=== PATIENT | female | born 1980 | race Caucasian/White ===

== ENCOUNTER 2019-11-06 13:48 | Emergency (ER) | payer BC, SELFPAY ==
[2019-11-06 14:00] VITALS: BP 112/62; PULSE 82; RESP 18; TEMP 37.2; O2SAT 100
--- NOTE | 2019-11-06 14:31 | ED.GENADULT ---
HPI - General Adult General Chief complaint: Upper Respiratory Infection Stated complaint: Cough,Sneezing Time Seen by Provider: 11/06/19 14:31 Source: patient and RN notes reviewed Mode of arrival: ambulatory Limitations: no limitations History of Present Illness HPI narrative: 39-year-old female presents with complaints of upper respiratory infection symptoms, sore throat, chills, body aches, and cough for 1 day. NyQuil and Benadryl with little relief. Dry cough with intermittent productive cough (clear phlegm). Chest congestion. Rhinorrhea and nasal congestion. Exacerbating factors smoke exposure. No high fevers. No nausea, vomiting, and abdominal pain. Denies chest pain, dyspnea, coughing up blood, difficulty swallowing, jaw pain, dental pain, facial pain, foreign body sensation, and rash. Jenni denies being , LMP 1 month ago and has IUD in place. Remains active. Some parts of this dictation were generated by voice recognition software and may contain typographical and/or grammatical inaccuracies. Related Data Home Medications Medication Instructions Recorded Confirmed levonorgestrel [Mirena] 1 device INTRAUTERINE ONCE 09/10/19 11/06/19 sertraline [Zoloft] 50 mg DAILY 11/06/19 11/06/19 Allergies Allergy/AdvReac Type Severity Reaction Status Date / Time IVORY SOAP Allergy Mild Unknown Uncoded 11/06/19 13:57 Review of Systems Review of Systems: Narrative: CONSTITUTIONAL: Complains of chills. Denies fever, sweats. EYES: Denies visual changes, redness, discharge. ENT: Complains of rhinorrhea, congestion, sore throat. Denies otalgia. CARDIOVASCULAR: Denies chest pain, palpitations, edema. RESPIRATORY: Denies dyspnea, wheezing. Complains of dry cough, intermittent productive cough. GASTROINTESTINAL: Denies abdominal pain, nausea, vomiting, diarrhea. GENITOURINARY: Denies dysuria, hematuria, abnormal discharge. SKIN: Denies rash or itching. MUSCULOSKELETAL: Denies acute back pain, joint pain. Complains of myalgia. NEUROLOGIC: Denies numbness or focal weakness. PSYCHIATRIC: Denies anxiety or depression. Complains of intermittent BAUER. All systems reviewed & are unremarkable except as noted in HPI and below. [facility] Past Medical History Medical History Anxiety Bronchitis Depression Surgical History Surgical History H/O breast surgery Benign lesion removed from left breast Family History Family History (Updated 11/06/19 @ 15:09 by FAUSTINO Henry) Grandparent Hypertension Diabetes mellitus Social History Social History (Updated 11/06/19 @ 15:07 by FAUSTINO Henry) Smoking packs per day: 1 Smoking cigarettes per day: 20.0 Years smoked: 18 Smoking pack-years: 18.00 Smoking status: Current every day smoker Second hand tobacco smoke exposure: No Alcohol intake: never Substance use: current Substance use type: marijuana Living arrangements: with family Occupation/Education: occupation Gender identity (if verbalized by the patient): Female Comments At time of signature, agree with nurse past medical, surgical, social, and family history. There is no relevant family history pertinent to the presenting complaint. Exam Narrative: Exam Narrative: GENERAL: This is a well-nourished, well-developed patient, in no apparent distress. Speaks in full sentences and ambulates with steady gait without dyspnea. HEAD: normocephalic, atraumatic. EYES: PERRL. Sclera clear/white. Vision is grossly intact. EARS: External ears normal, auditory canals clear and without drainage, TMs normal without perforation. Hearing grossly intact. NOSE: External nose normal with no obvious nasal discharge, nares with mild redness and enlarged turbinates, clear rhinorrhea. THROAT: Mucous membranes moist, posterior pharynx with PND, mild erythema, no exudate, and normal ton
== END 2019-11-06 14:44 | disposition home or self-care (01) ==
PROVIDERS: Emergency Provider Nurse Practitioner Family
DX: J06.9 Acute upper respiratory infection, unspecified (principal); F17.210 Nicotine dependence, cigarettes, uncomplicated
CPT/HCPCS: 87804; 99213; G0463

== ENCOUNTER 2021-09-06 10:57 | Outpatient (CLI) | payer BC, SELFPAY ==
[2021-09-06 11:44] LABS: Influenza Control Positive
== END 2021-09-06 10:58 | disposition home or self-care (01) ==
LOC: ANHLAB 11:00
PROVIDERS: PCP Nurse Practitioner Family; Visit Provider Nurse Practitioner Family
DX: B34.9 Viral infection, unspecified (principal)
CPT/HCPCS: 87081; 87804; 87880

== ENCOUNTER 2021-10-10 11:06 | Emergency (ER) | payer BC, SELFPAY ==
--- NOTE | ~2021-10-10 | XR_ITS ---
EXAMINATION: XR foot LT min 3V EXAM DATE: 10/10/2021 11:29 INDICATION: left lateral foot pain s/p fall today TECHNIQUE: Left foot dorsoplantar, lateral and oblique projections obtained and reviewed. There is n o prior study for comparison. FINDINGS: Left metatarsal bones unremarkable. There are no acute fractures or dislocations identifi ed. There is no subcutaneous gas. The soft tissue is unremarkable. There are no radiopaque foreig n bodies. IMPRESSION: No acute osseous findings. Reviewed, dictated and finalized at location B. ITY TELLER IMPRESSION: No acute osseous findings.
[2021-10-10 11:18] VITALS: BP 102/64; PULSE 105; RESP 16; TEMP 36.9; O2SAT 99
--- NOTE | 2021-10-10 11:35 | ED.LOWEXIN ---
HPI - Extremity Injury (Lower) General Chief Complaint: Extremity Injury, Lower Stated Complaint: left ankle pain Time Seen by Provider: 10/10/21 11:45 Source: patient Mode of arrival: ambulatory Limitations: no limitations History of Present Illness HPI Narrative: 41-year-old female presented for complaint of left foot pain after injury today. She states she slipped on a glass and inverted the left foot. Endorses bruising and swelling to lateral aspect. Endorses pain at onset and worse with ambulation. She denies numbness, tingling, or weakness. Has not taken anything for pain. She is currently using a walker. Related Data Home Medications Medication Instructions Recorded Confirmed levonorgestrel [Mirena] 1 device INTRAUTERINE ONCE 09/10/19 10/10/21 sertraline [Zoloft] 100 mg DAILY 11/06/19 10/10/21 Allergies Allergy/AdvReac Type Severity Reaction Status Date / Time IVORY SOAP Allergy Mild Unknown Uncoded 10/10/21 11:13 Review of Systems Review of Systems: CONSTITUTIONAL: Denies body aches, fever, chills EYES: Denies visual changes ENT: Denies rhinorrhea, congestion CARDIOVASCULAR: Denies chest pain, palpitations, or edema. RESPIRATORY: Denies cough or dyspnea. GASTROINTESTINAL: Denies abdominal pain, nausea, vomiting, or diarrhea. SKIN: Denies rash, itching, or wounds. MUSCULOSKELETAL: endorses left lateral foot pain NEUROLOGIC: Denies headache, numbness, tingling, or weakness. PSYCH: Denies depression or anxiety. All systems reviewed & are unremarkable except as noted in HPI and below PMFSH Past Medical History Medical History Anxiety Bronchitis Depression Surgical History Surgical History H/O breast surgery Benign lesion removed from left breast Family History Family History Grandparent Hypertension Diabetes mellitus Social History Social History Smoking packs per day: 1 Smoking cigarettes per day: 20.0 Years smoked: 18 Smoking pack-years: 18.00 Smoking status: Current every day smoker Second hand tobacco smoke exposure: No Alcohol intake: never Substance use: current Substance use type: marijuana Gender identity (if verbalized by the patient): Female Comments At time of signature, I have reviewed and agree with nursing past medical, surgical, social and family history unless otherwise noted. Please see nursing chart for further information. There is no relevant family history pertinent to the presenting complaint Exam Narrative: GENERAL: Well-appearing, well-nourished, and in no acute distress. HEAD: Normocephalic, atraumatic. EYES: PERRLA, conjunctivae clear NECK: Supple. CHEST: Speaks in full sentences. No respiratory distress. HEART: Regular rate and rhythm. Normal and equal peripheral pulses. EXTREMITIES: left lateral foot with approx 2 inch diameter raised contusion with tenderness to palpation, PPP, sensation intact, full ROM but endorses pain with weight bearing. No open wounds or obvious deformity; alignment normal, nearby joints and structures intact. Distal pulses palpable and equal bilaterally, skin warm, dry, pink. Capillary refill less than 3 seconds. SKIN: Warm, dry, no rash. NEURO: Alert and oriented x3. PSYCH: Normal mood and affect Course Course Emergency Course: xray reviewed with pt Patient is aware of diagnosis, understands and agrees to treatment plan. Anticipatory guidance given. Patient agrees to follow-up as directed and is aware of reasons to seek care at the emergency department. Portions of this record may have been created with voice recognition software Level of Care: Express Care Visit Vital Signs Vital signs: Vital Signs Temperature 98.4 F 10/10/21 11:18 Pulse Rate 105 H 10/10/21 11:18 Respirat
== END 2021-10-10 12:05 | disposition home or self-care (01) ==
PROVIDERS: Emergency Provider Nurse Practitioner Family; PCP Nurse Practitioner Family
DX: S93.402A Sprain of unspecified ligament of left ankle, initial encounter (principal); S96.912A Strain of unspecified muscle and tendon at ankle and foot level, left foot, initial encounter; W01.0XXA Fall on same level from slipping, tripping and stumbling without subsequent striking against object, initial encounter; F41.9 Anxiety disorder, unspecified; F32.A Depression, unspecified; F17.210 Nicotine dependence, cigarettes, uncomplicated
CPT/HCPCS: 73630; 99213; G0463

== ENCOUNTER 2024-08-30 20:11 | Emergency (ER) | payer BC, SELFPAY ==
[2024-08-30 20:25] VITALS: BP 125/76; PULSE 108; RESP 15; TEMP 36.7; O2SAT 99
[2024-08-30 21:15] LABS: Influenza A QL RT-PCR Negative (Negative); Influenza B QL RT-PCR Negative (Negative); RSV RNA, RT-PCR Negative (Negative); SARS-CoV-2 RNA PCR Negative (Negative)
[2024-08-31 05:33] VITALS: BP 125/73; PULSE 67; RESP 16; TEMP 36.2; O2SAT 99
--- NOTE | 2024-08-31 05:56 | ED_ITS ---
HPI - General Adult General Chief complaint: Shortness of Breath/Dyspnea Stated complaint: breathing difficulties History of Present Illness HPI narrative: Patient intermittently starts crying during the interview. This is a 44-year-old female history of anxiety presenting chief complaint of shortness of breath. Patient says over last several days she has been intermittent periods of shortness of breath throughout the day. Is associated with the discomfort in the epigastric area. The symptoms are worse at night when she is home alone. she can recreate the epigastric discomfort with her posture and she says she can recreate pain when she slouches. Patient is concerned that she might have esophageal cancer because her rbzltx-me-lax was recently diagnosed with esophageal cancer and then . patient says that she is having significant amount health-related anxiety since her mother in law passed. Patient was on antianxiety meds but stopped taking them 3 months ago after she got into a disagreement with her OBGYN. She says that her anxiety is got significantly worse since she stopped taking her meds. Patient denies fevers, chills, chest pain, difficulty swallowing, weight loss, voice changes, nausea vomiting or diarrhea. Related Data Home Medications ?Medication ?Instructions ?Recorded ?Confirmed ?Last Taken ?Type levonorgestrel (Mirena) 1 device intrauterine ONCE 09/10/19 10/10/21 Unknown History sertraline 50 mg tablet (Zoloft) 100 mg DAILY 11/06/19 10/10/21 Unknown History Allergies Allergy/AdvReac Type Severity Reaction Status Date / Time IVORY SOAP Allergy Mild Unknown Uncoded 08/30/24 20:30 [facility] Past Medical History Medical History (Updated 08/31/24 @ 06:14 by Shon Mireles MD) Anxiety Depression Bronchitis Surgical History Surgical History H/O breast surgery Benign lesion removed from left breast Family History Family History Grandparent Hypertension Diabetes mellitus Social History Social History Smoking packs per day: 1 Smoking cigarettes per day: 20.0 Years smoked: 18 Smoking pack-years: 18.00 Smoking status: Current every day smoker Second hand tobacco smoke exposure: No Alcohol intake: never Substance use: current Substance use type: marijuana Living arrangements: with family Occupation/Education: occupation Gender identity (if verbalized by the patient): Female Exam Narrative: APPEARANCE: Anxious, Head: atraumatic. EYES: EOMI, NOSE: Atraumatic NECK: Trachea midline RESPIRATORY: No increased rate of breathing , clear to auscultation, no stridor, speaking in full sentences CARDIOVASCULAR: RRR, no peripheral edema ABDOMINAL: Non-distended soft nontender no guarding rebound MUSCULOSKELETAl: No obvious deformities NEURO: Alert. Moving 4/4 extremities SKIN:: Warm, dry. Normal color PSYCHIATRIC: Normal affect Course Vital Signs Vital signs: Vital Signs Temperature 98.1 F 08/30/24 20:25 Pulse Rate 108 H 08/30/24 20:25 Respiratory Rate 15 08/30/24 20:25 Blood Pressure 125/76 08/30/24 20:25 Pulse Oximetry 99 08/30/24 20:25 Oxygen Delivery Room Air 08/30/24 20:25 Temperature 97.1 F L 08/31/24 05:33 Pulse Rate 67 08/31/24 05:33 Respiratory Rate 16 08/31/24 05:33 Blood Pressure 125/73 08/31/24 05:33 Pulse Oximetry 99 08/31/24 05:33 Oxygen Delivery Room Air 08/30/24 20:25 Medical Decision Making MDM Narrative Medical decision making narrative: -Course: This is a 44-year-old female presenting with intermittent shortness of breath and concerns about esophageal cancer. Patient is speaking in full sentences, has clear lung sounds and saturating well on room air. She has no objective signs of shortness of breath. Additionally she is concerned about esophageal cancer but has no symptoms of esophageal cancer like difficulty swallowing, weight loss nausea vomiting or chest pain. Patient is very anxious and is intermittently crying/ tremulous during the interview. I offered the patient Valium to help her with her anxiety and she agreed. We discussed doing chest x-rays, laboratory studies and the patient has declined. She has been here for 10 hours in our waiting room and would like to go home. Patient has been encouraged to return if she develops any new symptoms and to follow-up with her primary care physician for further workup if she is concerned about esophageal cancer. Vital Signs Vital Signs: Vital Signs Temperature 98.1 F 08/30/24 20:25 Pulse Rate 108 H 08/30/24 20:25 Respiratory Rate 15 08/30/24 20:25 Blood Pressure 125/76 08/30/24 20:25 Pulse Oximetry 99 08/30/24 20:25 Oxygen Delivery Room Air 08/30/24 20:25 Temperature 97.1 F L 08/31/24 05:33 Pulse Rate 67 08/31/24 05:33 Respiratory Rate 16 08/31/24 05:33 Blood Pressure 125/73 08/31/24 05:33 Pulse Oximetry 99 08/31/24 05:33 Oxygen Delivery Room Air 08/30/24 20:25 Lab Data Labs: Lab Results 08/30/24 Range/Units 20:31 Influenza A (RT-PCR) Negative (Negative) Influenza B (RT-PCR) Negative (Negative) RSV (RT-PCR) Negative (Negative) SARS-CoV-2 RNA (RT-PCR) Negative (Negative) Discharge Plan Discharge Clinical Impression: Anxiety Patient Disposition: Home, Self-Care Condition: Stable Instructions: Antibiotic Form Additional Instructions: Please follow-up with your primary care physician for further management. Return to the ED if you develop chest pain shortness of breath or any new or worsening symptoms. I would encourage you to restart your anti-anxiety medication. Patient Language: Yakut Prescriptions: No Action Mirena 20 mcg/24 hours (5 yrs) 52 mg Intrauterine Device 1 device INTRAUTERINE ONCE sertraline [Zoloft] 50 mg tablet 100 mg DAILY Follow-up/Referrals: PHYSICIAN,WOODEN BARREL MECHANIC [Primary Care Provider] - Dionicio Hollingsworth MD [Physician] -
[2024-08-31] MEDS: diazePAM INJ (*CRX) 10 MG/2 ML SYRINGE 5 MG IM (06:31)
[2024-08-31 06:32] VITALS: O2SAT 95
--- OUTSIDE RECORDS SUMMARY | 2024-09-07 03:37 | XMS_ITS | Referral Summary ---
Author Organization [facility] Address [address] [place] [address] Care Team Providers Care Fur Tailor Name Role Phone Unavailable Primary Care Provider Unavailabl e Source Comments [facility],non-owned Affiliates and Associated Physician Practices is amultiple site organization consisting of ambulatory clinics and hospital sitesin [place], [place], [place] and [place]. This disclosure is being madepursuant to the Care Everywhere program and may not contain all information available regarding this patient. Last updated 18.[facility] Social History Tobacco Use Types Packs/Day Years Used Date Smoking Tobacco: Never Assessed Sex and Gender Information Value Date Recorded Sex Assigned at Not on file Gender Identity Not on file Sexual Orientation Not on file Plan of Treatment Not on file
--- OUTSIDE RECORDS SUMMARY | 2024-09-07 03:37 | XMS_ITS | Encounter Summary ---
Author Organization [facility] Address [address] [place] [address] Care Team Providers Care Accounts Receivable Processor Name Role Phone Unavailable Primary Care Provider Unavailabl e Encounter Details Date Type Department Care Team (Latest Contact Info) Description 10/23/2011 10:26 AM BOARD MEMBER - 10/23/2011 11:59 PM BOARD MEMBER Hospital Encounter [facility] [address] [place] [address] Pcp, Unknown [place] [address] Laboratory Discharge Disposition: Home or Self Care Social History Tobacco Use Types Packs/Day Years Used Date Smoking Tobacco: Never Assessed Sex and Gender Information Value Date Recorded Sex Assigned at Not on file Gender Identity Not on file Sexual Orientation Not on file documented as of this encounter Miscellaneous Notes * Miscellaneous Scans - Document, Scanned - 03/05/2012 7:52 PM CDT * Miscellaneous Scans - Document, Scanned - 11/11/2011 10:28 AM CDT documented in this encounter Plan of Treatment Not on file documented as of this encounter Procedures Procedure Name Priority Date/Time Associated Diagnosis Comments CHROMOSOME ANALYSIS BLOOD FISH PANEL Routine 10/23/2011 12:00 AM BOARD MEMBER documented in this encounter Results * CHROMOSOME ANALYSIS BLOOD FISH PANEL (10/23/2011 12:00 AM BOARD MEMBER) Chromosome Analysis FISH See Scanned Report [facility] Comment Cytogenetics See Scanned Report [facility] BLOOD SPECIMEN / Unknown 10/23/2011 10/24/2011 12:32 PM BOARD MEMBER Unknown Pcp LAB - PATHOLOGY/CYTO LOGY ORDERABLES Performing Organization Address City/State/[facility] Co de Phone Number [facility] [address] [place] [address] documented in this encounter Visit Diagnoses Not on filedocumented in this encounter
--- OUTSIDE RECORDS SUMMARY | 2024-09-07 03:37 | XMS_ITS | Patient Health Summary ---
Author Organization [facility] Address [address] [place] [address] Care Team Providers Care Sas Programmer Name Role Phone Unavailable Primary Care Provider Unavailabl e Note from [facility],non-owned Affiliates and Associated Physician Practices is amultiple site organization consisting of ambulatory clinics and hospital sitesin [place], [place], [place] and [place]. This disclosure is being madepursuant to the Care Everywhere program and may not contain all information available regarding this patient. Last updated 18.[facility] Social History Tobacco Use Types Packs/Day Years Used Date Smoking Tobacco: Never Assessed Sex and Gender Information Value Date Recorded Sex Assigned at Not on file Gender Identity Not on file Sexual Orientation Not on file Procedures * CHROMOSOME ANALYSIS BLOOD FISH PANEL(Performed 10/23/2011) Results * CHROMOSOME ANALYSIS BLOOD FISH PANEL (10/23/2011 12:00 AM FASHION DESIGNER) Chromosome Analysis FISH See Scanned Report [facility] Comment Cytogenetics See Scanned Report [facility] BLOOD SPECIMEN / Unknown 10/23/2011 10/24/2011 12:32 PM FASHION DESIGNER Unknown Pcp LAB - PATHOLOGY/CYTO LOGY ORDERABLES [facility] [address] [place] [address]
--- OUTSIDE RECORDS SUMMARY | 2024-09-07 03:37 | XMS_ITS | Encounter Summary ---
Author Organization [facility] Address [address] [place] [address] Care Team Providers Care Human Resources Safety Manager Name Role Phone Unavailable Primary Care Provider Unavailabl e Encounter Details Date Type Department Care Team (Latest Contact Info) Description 10/23/2011 12:32 PM ASSISTANT ENGINEER - 10/23/2011 11:59 PM [facility] [address] [place] [address] Jassi Bose MD RETIRED Discharge Disposition: Home or Self Care Social History Tobacco Use Types Packs/Day Years Used Date Smoking Tobacco: Never Assessed Sex and Gender Information Value Date Recorded Sex Assigned at Not on file Gender Identity Not on file Sexual Orientation Not on file documented as of this encounter Plan of Treatment Not on file documented as of this encounter Visit Diagnoses Not on filedocumented in this encounter
--- OUTSIDE RECORDS SUMMARY | 2024-09-07 03:37 | XMS_ITS | Clinical Summary ---
Author Organization [facility] Address [address] [place] [address] Care Team Providers Care Reordering Clerk Name Role Phone Unavailable Primary Care Provider Unavailabl e Source Comments [facility],non-owned Affiliates and Associated Physician Practices is amultiple site organization consisting of ambulatory clinics and hospital sitesin [place], [place], [place] and [place]. This disclosure is being madepursuant to the Care Everywhere program and may not contain all information available regarding this patient. Last updated 18.[facility] Social History Tobacco Use Types Packs/Day Years Used Date Smoking Tobacco: Never Assessed Sex and Gender Information Value Date Recorded Sex Assigned at Not on file Gender Identity Not on file Sexual Orientation Not on file Plan of Treatment Health Maintenance Due Date Last Done Comments LIPID TESTING 1981 MAMMOGRAM 1981 PAP SMEAR 1981 HIV SCREENING 1996 HEPATITIS C SCREENING 06/09/1999 DTAP/TDAP/TD VACCINES (1 - Tdap) 2000 HEPATITIS B VACCINE (1 of 3 - 19+ 3-dose series) 2000 DEPRESSION SCREENING 09/01/2023 COVID-19 VACCINE (1 - 2023-2 5 season) 2024 INFLUENZA VACCINE (#1) 2024 ZOSTER VACCINE (1 of 2) 2031 HIB VACCINE Aged Out No longer eligi ble based on patient's age to complete this topic HPV VACCINE Aged Out No longer eligi ble based on patient's age to complete this topic MENINGOCOCCAL VACCINE Aged Out No kristen garrison eligible based on patient's age to complete this topic PNEUMOCOCCAL VACCINE Aged Out No long er eligible based on patient's age to complete this topic
== END 2024-08-31 06:34 | disposition home or self-care (01) ==
LOC: ANHED 08-31 06:22
PROVIDERS: Emergency Provider Emergency Medicine
DX: F41.9 Anxiety disorder, unspecified (principal); Z20.822 Contact with and (suspected) exposure to COVID-19; F32.A Depression, unspecified; F17.210 Nicotine dependence, cigarettes, uncomplicated; Z97.5 Presence of (intrauterine) contraceptive device; Z79.899 Other long term (current) drug therapy
CPT/HCPCS: 87637; 96372; 99283; J3360

== ENCOUNTER 2025-01-07 21:14 | Emergency (ER) | payer BC, SELFPAY ==
--- NOTE | ~2025-01-07 | CT_ITS ---
EXAMINATION: CTA chest PE protocol DATE: 01/08/2025 02:33 INDICATION: Chest pain and shortness of breath TECHNIQUE: Computed tomography (CT) pulmonary angiogram of the chest was performed with 100 mL Omnipa que-350 intravenous contrast. Additional 3D reconstructions utilizing coronal maximum intensity proje ction (MIP) were performed. Automated exposure control and iterative reconstruction technique were em ployed. The dose-length product was 267.23 mGy-cm. COMPARISON: None FINDINGS: No pulmonary embolism. Mild emphysema. No pneumonia, pulmonary edema, pleural effusion or pneumothora x. Heart size is normal. No pericardial effusion. Thoracic aorta is normal in caliber with no dissect ion. No pathologically enlarged thoracic lymphadenopathy. Small sliding-type hiatal hernia. Bones are unremarkable. IMPRESSION: 1. No pulmonary embolism or other acute cardiopulmonary disease. 2. Mild emphysema. 3. Small sliding-type hiatal hernia. Reviewed, dictated and finalized at location A.
--- NOTE | ~2025-01-07 | XR_ITS ---
XR chest 2V Ordering provider: Shon Mireles MD History: 44 years Female with . CP, SOB . Comparison: June 02, 2017 FINDINGS: MEDIASTINUM: The cardiac silhouette is not enlarged. LUNGS: No infiltrates, effusions or pneumothorax. OTHER: No free air under the diaphragm. IMPRESSION: No acute cardiopulmonary pathology. Reviewed, dictated and finalized at location A.
--- NOTE | 2025-01-07 21:15 | ECG_ITS ---
Test Date: 2025-01-07 21:19:35 Measurements Intervals [place] Rate: 103 P: 59 NV: 120 QRS: 12 QRSD: 100 T: 29 QT: 350 QTc: 459 Interpretive Statements SINUS TACHYCARDIA POSSIBLE LEFT ATRIAL ENLARGEMENT [-0.1mV P WAVE IN V1/V2] INCOMPLETE RIGHT BUNDLE BRANCH BLOCK [90+ ms QRS DURATION, TERMINAL R IN V1/V2, 40+ ms S IN I/aVL/V4/V5/V6] ABNORMAL RHYTHM ECG No previous ECG available for comparison Electronically Signed On 01-07-2025 21:54:26 CDT by Lairsa Sarmiento M.D.
--- OUTSIDE RECORDS SUMMARY | 2025-01-07 21:16 | XMS_ITS | Clinical Summary ---
Author Organization [facility] Address [address] [place] [address] Care Team Providers Care Schedule Maker Name Role Phone Unavailable Primary Care Provider Unavailabl e Source Comments [facility],non-owned Affiliates and Associated Physician Practices is amultiple site organization consisting of ambulatory clinics and hospital sitesin [place], [place], [place] and [place]. This disclosure is being madepursuant to the Care Everywhere program and may not contain all information available regarding this patient. Last updated 18.[facility] Social History Tobacco Use Types Packs/Day Years Used Date Smoking Tobacco: Never Assessed Comments Unknown Sex and Gender Information Value Date Recorded Sex Assigned at Not on file Legal Sex Female 1:10 PM BROOMCORN THRESHER Gender Identity Not on file Sexual Orientation Not on file Plan of Treatment Health Maintenance Due Date Last Done Comments LIPID TESTING 1981 MAMMOGRAM 1981 HIV SCREENING 1996 HEPATITIS C SCREENING 06/09/1999 DTAP/TDAP/TD VACCINES (1 - Tdap) 2000 HEPATITIS B VACCINE (1 of 3 - 19+ 3-dose series) 2000 COVID-19 VACCINE ( - 2023-2 5 season) 2024 DEPRESSION SCREENING 09/01/2024 INFLUENZA VACCINE (Season Ended) 2025 ZOSTER VACCINE (1 of 2) 2031 HIB VACCINE Aged Out No longer eligi ble based on patient's age to complete this topic HPV VACCINE Aged Out No longer eligi ble based on patient's age to complete this topic MENINGOCOCCAL (Group B) VACC INE SHARED DECISION-MAKING Aged Out No longer eligibl e based on patient's age to complete this topic MENINGOCOCCAL GROUPS A/C/Y/W VACCINE Aged Out No longer eligible b ased on patient's age to complete this topic PNEUMOCOCCAL VACCINE Aged Out No long er eligible based on patient's age to complete this topic
--- OUTSIDE RECORDS SUMMARY | 2025-01-07 21:16 | XMS_ITS | Clinical Summary ---
Author Organization [facility] Address [address] [place] [phone] Phone Care Team Providers Care Sole Polisher Name Role Phone Unavailable Primary Care Provider Unavailabl e Allergies No known active allergies Medications busPIRone (BUSPAR) 10 mg tablet Take 20 mg by mouth daily. Active sertraline (ZOLOFT) 100 mg tablet Take 100 mg by mouth daily. Active Social History Tobacco Use Types Packs/Day Years Used Date Smoking Tobacco: Every Day Cigarettes Smokeless Tobacco: Never Tobacco Cessation:Ready to Q uit: Not Asked; Counseling Given: Not Answered Alcohol Use Standard Drinks/Week Comments Not Currently 0 (1 standard drink = 0.6 oz pur e alcohol) Feeling Safe Answer Date Recorded Are you in a relationship wi th someone who hurts you emotionally and/or physically? No 01/15/2023 Comments No Sex and Gender Information Value Date Recorded Sex Assigned at Not on file Legal Sex Female 12:06 PM CDT Gender Identity Not on file Sexual Orientation Not on file Last Filed Vital Signs Vital Sign Reading Time Taken Comments Blood Pressure 103/65 01/15/2023 4:33 PM CDT Pulse 85 01/15/2023 12:18 PM CDT Temperature 36.6 C (97.9 F) 01/15/2023 4:33 PM CDT Respiratory Rate 16 01/15/2023 4:33 PM CDT Oxygen Saturation 99% 01/15/2023 4:33 PM CDT Inhaled Oxygen Concentration - - Weight 78.5 kg (173 lb) 01/15/2023 12:18 PM CDT Height 167.6 cm (5' 6 ) 01/15/2023 12:18 PM CDT Body Mass Index 27.92 01/15/2023 12:18 PM CDT Plan of Treatment Health Maintenance Due Date Last Done Comments DTAP/TDAP/TD VACCINES (1 - Tdap) 2000 HEPATITIS B VACCINES (1 of 3 - 19+ 3-dose series) 2000 HPV/Cotest (21-29) 2002 CERVICAL CANCER SCREENING 2011 HPV/Cotest (30-65) 2011 PAP SMEAR 2011 BREAST CANCER SCREENING 2021 INFLUENZA VACCINE (#1) 2024 HPV VACCINES Aged Out No longer eligi ble based on patient's age to complete this topic Insurance [facility]
[2025-01-07 21:20] VITALS: BP 147/88; PULSE 97; RESP 20; TEMP 36.7; O2SAT 100
[2025-01-07 21:50] LABS: Basophils Absolute Auto 0.1 K/mm3 (0.0-0.1); Basophils Percent Auto 0.6 % (0.2-1.2); Eosinophils Absolute Auto 0.1 K/mm3 (0-0.3); Eosinophils Percent Auto 0.9 % (0-4.4); Hemoglobin 15.1 g/dL (12.0-15.0); Immature Granulocyte Absolute 0.05 K/mm3 (0.00-0.031); Immature Granulocyte Percent A 0.5 % (0-0.5); Lymphocytes Absolute Auto 4.55 K/mm3 (0.9-3.2); Mean Corpuscular HGB Conc 32.8 g/dl (32-36); Mean Corpuscular Hemoglobin 28.8 pg (26-34); Mean Corpuscular Volume 87.8 fl (80-100); Mean Platelet Volume 9.2 fl (7.4-10.4); Monocytes Absolute Auto 0.8 K/mm3 (0.1-0.6); Monocytes Percent Auto 7.5 % (2.6-8.5); Neutrophils Absolute Auto 5.3 K/mm3 (1.3-6.7); Neutrophils Percent Auto 48.5 % (45.5-73.1); Platelet Count Result 276 k/mm3 (150-375); Red Blood Count 5.24 M/mm3 (4.2-5.4); Red Cell Distribution Width 12.5 % (11.5-14.5); White Blood Count 10.8 K/mm3 (4.5-10.0)
[2025-01-07 21:59] LABS: Alanine Aminotransferase 29 U/L (6-35); Albumin Level 4.8 g/dL (3.5-5.1); Alkaline Phosphatase 110 U/L (38-126); Anion Gap 11 mmol/L (4-12); Aspartate Amino Transferase 29 U/L (14-36); Bilirubin,Total 0.4 mg/dL (0.2-1.3); Blood Urea Nitrogen 11 mg/dL (7-17); Calcium 9.6 mg/dL (8.4-10.2); Carbon Dioxide 26 mmol/L (22-30); Chloride 104 mmol/L (98-107); Estimated CRCL calculation 77 ml/min; Estimated Glomerular Filt Rate > 60; Glucose 110 mg/dL (65-110); Lipase 149 U/L (23-300); Potassium 3.8 mmol/L (3.4-5.0); Sodium 141 mmol/L (137-145)
[2025-01-07 22:05] LABS: INR 0.9; Partial Thromboplastin Time 31.9 Seconds (22.3-36.8); Prothrombin Time 12.9 Seconds (11.1-14.7)
[2025-01-07 22:11] LABS: Platelet Estimate Adequate (Adequate); Smudge Cells FEW; Troponin I < 0.012 ng/mL (0.000-0.034)
[2025-01-07 22:12] LABS: Atypical Lymphocytes Present; Schistocytes None Seen
[2025-01-07 22:45] LABS: Add Urine Microscopic? NO; Appearance Urine Clear (Clear); Bilirubin Urine Negative (Negative); Blood Urine Negative (Negative); Color Urine Yellow (Yellow); Glucose Urine UA Negative (Negative); Ketones Urine Negative (Negative); Leukocyte Esterase Ur Negative LEU/UL (Negative); Nitrate Urine Negative (Negative); Protein Urine Negative (Negative); Specific Grav Ur 1.003 (1.001-1.035); Urobilinogen Urine 0.2 mg/dL (<2.0)
[2025-01-07 23:09] VITALS: BP 105/65; PULSE 73; RESP 15; O2SAT 99
[2025-01-07 23:11] VITALS: O2SAT 97
[2025-01-07 23:13] VITALS: PULSE 61
--- OUTSIDE RECORDS SUMMARY | 2025-01-07 23:56 | XMS_ITS | Clinical Summary ---
Author Organization [facility] Address [address] 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,non-owned Affiliates and Associated Physician Practices is amultiple site organization consisting of ambulatory clinics and hospital sitesin [place], [place], [place] and [place]. This disclosure is being madepursuant to the Care Everywhere program and may not contain all information available regarding this patient. Last updated 18.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
--- OUTSIDE RECORDS SUMMARY | 2025-01-07 23:56 | XMS_ITS | Clinical Summary ---
Author Organization [facility] Address [address] [place] [phone] Phone Care Team Providers Care A P Manager Name Role Phone Unavailable Primary Care [...] to complete this topic Insurance [facility]
[2025-01-08 00:28] VITALS: BP 102/79; PULSE 74; RESP 16; O2SAT 99
[2025-01-08 01:12] LABS: Troponin I < 0.012 ng/mL (0.000-0.034)
[2025-01-08 01:22] LABS: Amphetamine Screen Urine Negative (Negative); Barbiturate Screen Urine Negative (Negative); Benzodiazepines Screen Urine Negative (Negative); Cannabinoid Screen Urine Positive (Negative); Cocaine Screen Urine Negative (Negative); Methadone Screen Urine Negative (Negative); Opiate Screen Urine Negative (Negative); Phencyclidine Screen Urine Negative (Negative)
--- NOTE | 2025-01-08 01:40 | ED_ITS ---
HPI - Chest Pain General Chief Complaint: Chest Pain Stated Complaint: Chest pain, dizziness, SOB Time Seen by Provider: 01/07/25 23:48 History of Present Illness HPI narrative: Patient is a 44-year-old female who presents to the ER with a 1 week history of chest pain, dizziness, chest tightness, weakness, lethargy and shortness of breath. She reports her symptoms worsened yesterday so she decided come in for evaluation. Patient endorses a history of depression, anxiety, and asthma. She reports she is a previous cigarette smoker and now smokes marijuana and vapes. Patient denies any abdominal pain, back pain, recent fevers, or muscle aches. Related Data Home Medications ?Medication ?Instructions ?Recorded ?Confirmed ?Last Taken ?Type levonorgestrel (Mirena) 1 device intrauterine ONCE 09/10/19 10/10/21 Unknown History sertraline 50 mg tablet (Zoloft) 100 mg DAILY 11/06/19 10/10/21 Unknown History Allergies Allergy/AdvReac Type Severity Reaction Status Date / Time IVORY SOAP Allergy Mild Unknown Uncoded 08/30/24 20:30 Review of Systems 2 Review of Systems: All systems reviewed & are unremarkable except as noted in HPI and below PMFSH Past Medical History Medical History (Updated 01/08/25 @ 04:35 by Karlie Tenorio APRN) Anxiety Depression Bronchitis Surgical History Surgical History H/O breast surgery Benign lesion removed from left breast Family History Family History Grandparent Hypertension Diabetes mellitus Social History Social History Smoking packs per day: 1 Smoking cigarettes per day: 20.0 Years smoked: 18 Smoking pack-years: 18.00 Smoking status: Current every day smoker Second hand tobacco smoke exposure: No Alcohol intake: never Substance use: current Substance use type: marijuana Living arrangements: with family Occupation/Education: occupation Gender identity (if verbalized by the patient): Female Exam 2 Narrative: GENERAL: Well appearing, well-nourished, non-toxic, in no acute distress. HEAD: Normocephalic, atraumatic. NECK: Supple. No adenopathy, no masses. RESPIRATORY: Airway patent, respirations nonlabored. Clear to auscultation bilaterally, no rales, rhonchi, wheezing. CARDIOVASCULAR: Regular rate and rhythm without murmurs, rubs, or gallops. Peripheral pulses 2+ and equal bilaterally. ABDOMINAL: Soft, nontender, nondistended, no hepatosplenomegaly. Normoactive BS. MUSCULOSKELETAL: Moves all extremities. Strength/ROM intact without gross deformities. SKIN: Warm, dry, normal color. No rashes. NEURO: A&O X3. Speech clear. Cranial nerves II-XII intact. No ataxic movements. PSYCHIATRIC: Tearful Course Vital Signs Vital signs: Vital Signs Temperature 36.7 C 01/07/25 21:20 Pulse Rate 97 01/07/25 21:20 Respiratory Rate 20 01/07/25 21:20 Blood Pressure 147/88 H 01/07/25 21:20 Pulse Oximetry 100 01/07/25 21:20 Oxygen Delivery Room Air 01/07/25 21:20 Temperature 36.7 C 01/07/25 21:20 Pulse Rate 70 01/08/25 03:02 Respiratory Rate 16 01/08/25 03:02 Blood Pressure 108/74 01/08/25 03:02 Pulse Oximetry 98 01/08/25 03:02 Oxygen Delivery Room Air 01/07/25 23:11 MDM - Chest Pain MDM Narrative Medical decision making narrative: Patient is a 44-year-old female who presents to the ER with a 1 week history of chest pain, dizziness, chest tightness, weakness, lethargy and shortness of breath. She reports her symptoms worsened yesterday so she decided come in for evaluation. Patient endorses a history of depression, anxiety, and asthma. She reports she is a previous cigarette smoker and now smokes marijuana and vapes. Patient denies any abdominal pain, back pain, recent fevers, or muscle aches. She reports she has not been taking antidepressant medication, as she no longer has a primary care provider. Patient reports she feels as though she needs to go back on antidepressants. Labs Ordered: CBC, CMP, UA, UDS, troponin, TSH, INR, PTT, lipase Imaging Ordered: Chest x-ray, CTA chest PE Medications Ordered: None necessary Results: Patient's CTA chest indicates no acute findings. Diagnosis: Atypical chest pain Risks: HEART score: low risk HEART Score for Major Cardiac Events from [email or web address] on 01/08/2025 All calculations should be rechecked by clinician prior to use RESULT SUMMARY: 1 points Low Score (0-3 points) Risk of MACE of 0.9-1.7%. INPUTS: History ?> 0 = Slightly suspicious EKG ?> 0 = Normal Age ?> 0 = <45 Risk factors ?> 1 = 1-2 risk factors Initial troponin ?> 0 = <=Normal limit Consults: None necessary Patient Education/Shared MDM: Results of lab work and imaging shared with patient. Patient strongly advised to follow-up with PCP as soon as possible. She will not be discharged home with any new prescriptions. Strict return precautions provided. Patient verbalized understanding and is in agreement with plan. Vital signs stable at time of discharge. All questions answered. Differential Diagnosis Differential diagnosis: Likely atypical chest pain, costochondritis and chest pain Lab Data Attestation: I reviewed the patient's lab results. 01/07/25 21:45 01/07/25 21:45 Labs: Lab Results 01/07/25 01/07/25 01/07/25 Range/Units 21:44 21:45 22:38 WBC 10.8 H (4.5-10.0) K/mm3 RBC 5.24 (4.2-5.4) M/mm3 Hgb 15.1 H (12.0-15.0) g/dL Hct 46.0 (37.0-47.0) % MCV 87.8 (80-100) fl MCH 28.8 (26-34) pg MCHC 32.8 (32-36) g/dl RDW 12.5 (11.5-14.5) % Plt Count 276 (150-375) k/mm3 MPV 9.2 (7.4-10.4) fl Immature Gran % (Auto) 0.5 (0-0.5) % Neut % (Auto) 48.5 (45.5-73.1) % Lymph % (Auto) 42.0 (18.3-44.2) % [place] % (Auto) 7.5 (2.6-8.5) % Eos % (Auto) 0.9 (0-4.4) % Baso % (Auto) 0.6 (0.2-1.2) % Lymph # (Auto) 4.55 H (0.9-3.2) K/mm3 [place] # (Auto) 0.8 H (0.1-0.6) K/mm3 Eos # (Auto) 0.1 (0-0.3) K/mm3 Baso # (Auto) 0.1 (0.0-0.1) K/mm3 Abs Immat Gran (auto) 0.05 H (0.00-0.031) K/mm3 Absolute Neuts (auto) 5.3 (1.3-6.7) K/mm3 Absolute Nucleated RBC 0.000 (0.0-0.012) K/mm3 Band Neutrophils % Not Reportable Nucleated RBC % 0.0 (0.0-0.2) % Atypical Lymphocytes Present Smudge Cells Few Platelet Estimate Adequate (Adequate) Schistocytes None seen PT 12.9 (11.1-14.7) Seconds INR 0.9 APTT 31.9 (22.3-36.8) Seconds Sodium 141 (137-145) mmol/L Potassium 3.8 (3.4-5.0) mmol/L Chloride 104 (98-107) mmol/L Carbon Dioxide 26 (22-30) mmol/L Anion Gap 11 (4-12) mmol/L BUN 11 (7-17) mg/dL Creatinine 0.88 (0.7-1.0) mg/dL Estim Creat Clear Calc 77 ml/min Estimated GFR > 60 (59 - ) Glucose 110 (65-110) mg/dL Calcium 9.6 (8.4-10.2) mg/dL Total Bilirubin 0.4 (0.2-1.3) mg/dL AST 29 (14-36) U/L ALT 29 (6-35) U/L Alkaline Phosphatase 110 (38-126) U/L Troponin I < 0.012 (0.000-0.034) ng/mL Total Protein 8.0 (6.3-8.2) g/dL Albumin 4.8 (3.5-5.1) g/dL Lipase 149 (23-300) U/L TSH (Reflex) 2.240 (0.465-4.68) uIU/mL Urine Color Yellow (Yellow) Urine Appearance Clear (Clear) Urine pH 6.0 (5.0-9.0) Ur Specific [place] 1.003 (1.001-1.035) Urine Protein Negative (Negative) mg/dL Urine Glucose (UA) Negative (Negative) mg/dL Urine Ketones Negative (Negative) mg/dL Ur Blood (Man) Negative (Negative) Urine Nitrate Negative (Negative) Urine Bilirubin Negative (Negative) Urine Urobilinogen 0.2 (<2.0) mg/dL Leukocyte Esterase Rfl Negative (Negative) RUPERT/UL Urine Opiates Screen Negative (Negative) Urine Methadone Screen Negative (Negative) Ur Barbiturates Screen Negative (Negative) Ur Phencyclidine Scrn Negative (Negative) Ur Amphetamine Screen Negative (Negative) U Benzodiazepines Scrn Negative (Negative) Urine Cocaine Screen Negative (Negative) U Cannabinoids Screen Positive A (Negative) 01/08/25 01/08/25 Range/Units 00:35 03:38 WBC (4.5-10.0) K/mm3 RBC (4.2-5.4) M/mm3 Hgb (12.0-15.0) g/dL Hct (37.0-47.0) % MCV (80-100) fl MCH (26-34) pg MCHC (32-36) g/dl RDW (11.5-14.5) % Plt Count (150-375) k/mm3 MPV (7.4-10.4) fl Immature Gran % (Auto) (0-0.5) % Neut % (Auto) (45.5-73.1) % Lymph % (Auto) (18.3-44.2) % [place] % (Auto) (2.6-8.5) % Eos % (Auto) (0-4.4) % Baso % (Auto) (0.2-1.2) % Lymph # (Auto) (0.9-3.2) K/mm3 [place] # (Auto) (0.1-0.6) K/mm3 Eos # (Auto) (0-0.3) K/mm3 Baso # (Auto) (0.0-0.1) K/mm3 Abs Immat Gran (auto) (0.00-0.031) K/mm3 Absolute Neuts (auto) (1.3-6.7) K/mm3 Absolute Nucleated RBC (0.0-0.012) K/mm3 Band Neutrophils % Nucleated RBC % (0.0-0.2) % Atypical Lymphocytes Smudge Cells Platelet Estimate (Adequate) Schistocytes PT (11.1-14.7) Seconds INR APTT (22.3-36.8) Seconds Sodium (137-145) mmol/L Potassium (3.4-5.0) mmol/L Chloride (98-107) mmol/L Carbon Dioxide (22-30) mmol/L Anion Gap (4-12) mmol/L BUN (7-17) mg/dL Creatinine (0.7-1.0) mg/dL Estim Creat Clear Calc ml/min Estimated GFR (59 - ) Glucose (65-110) mg/dL Calcium (8.4-10.2) mg/dL Total Bilirubin (0.2-1.3) mg/dL AST (14-36) U/L ALT (6-35) U/L Alkaline Phosphatase (38-126) U/L Troponin I < 0.012 Pending (0.000-0.034) ng/mL Total Protein (6.3-8.2) g/dL Albumin (3.5-5.1) g/dL Lipase (23-300) U/L TSH (Reflex) (0.465-4.68) uIU/mL Urine Color (Yellow) Urine Appearance (Clear) Urine pH (5.0-9.0) Ur Specific [place] (1.001-1.035) Urine Protein (Negative) mg/dL Urine Glucose (UA) (Negative) mg/dL Urine Ketones (Negative) mg/dL Ur Blood (Man) (Negative) Urine Nitrate (Negative) Urine Bilirubin (Negative) Urine Urobilinogen (<2.0) mg/dL Leukocyte Esterase Rfl (Negative) RUPERT/UL Urine Opiates Screen (Negative) Urine Methadone Screen (Negative) Ur Barbiturates Screen (Negative) Ur Phencyclidine Scrn (Negative) Ur Amphetamine Screen (Negative) U Benzodiazepines Scrn (Negative) Urine Cocaine Screen (Negative) U Cannabinoids Screen (Negative) Imaging Data Attestation: I personally reviewed and interpreted this imaging study as follows: Radiologist's impression: No acute abnormalities Discharge Plan Discharge Clinical Impression: Atypical chest pain Patient Disposition: Home Condition: Stable Instructions: Antibiotic Form, Noncardiac Chest Pain (ED) Additional Instructions: Please return to the ER with any worsening symptoms. Follow-up with primary care provider as soon as possible for further evaluation of your noncardiac chest pain. You may use Tylenol and ibuprofen for pain control outside of the hospital. Patient Language: Azeri Prescriptions: No Action Mirena 20 mcg/24 hours (5 yrs) 52 mg Intrauterine Device 1 device INTRAUTERINE ONCE sertraline [Zoloft] 50 mg tablet 100 mg DAILY Follow-up/Referrals: Radha Moncada MD [Physician] - (primary care) PHYSICIAN,CURTAINS AND DRAPERIES SALESPERSON [Primary Care Provider] - Dionicio Hlolingsworth MD [Physician] - (primary care) Time of Disposition: 04:34
[2025-01-08 03:02] VITALS: BP 108/74; PULSE 70; RESP 16; O2SAT 98
[2025-01-08 05:00] VITALS: BP 112/74; PULSE 82; RESP 15; TEMP 36.7; O2SAT 100
[2025-01-08 05:01] VITALS: BP 112/74; PULSE 82; RESP 15; TEMP 36.7; O2SAT 100
== END 2025-01-08 05:03 | disposition home or self-care (01) ==
PROVIDERS: Emergency Medicine; Emergency Provider Registered Nurse
DX: R07.89 Other chest pain (principal); F41.8 Other specified anxiety disorders; F17.210 Nicotine dependence, cigarettes, uncomplicated
CPT/HCPCS: 36415; 71046; 71275; 80053; 80307; 81003; 83690; 84443; 84484; 85025; 85610; 85730; 93005; 99284; Q9967